=== PATIENT | female | born 2000 | race Caucasian/White ===

== ENCOUNTER 2022-03-25 14:18 | Emergency (ER) | payer OTHER ==
[~2022-03-25] VITALS: Ht 162.6 cm; Wt 104.8 kg
[2022-03-25 14:28] VITALS: BP 145/80
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
--- NOTE | 2022-03-25 15:35 | NUR ---
Patient discharged with v/s stable. Written and verbal after care instructions FOR HAND OR FOOT FOREIGN BODY given and explained. Patient verbalized understanding. Ambulatory with steady gait. All questions addressed prior to discharge. Advised to follow up with PMD.
== END 2022-03-25 15:35 | disposition home or self-care (01) ==
LOC: MED 14:18
DX: S60.444A External constriction of right ring finger, initial encounter (principal); W49.04XA Ring or other jewelry causing external constriction, initial encounter; Y93.89 Activity, other specified; Y92.89 Other specified places as the place of occurrence of the external cause; Y99.8 Other external cause status
CPT/HCPCS: 99284